=== PATIENT | female | born 1995 | race Caucasian/White ===

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

== ENCOUNTER 2017-02-03 14:10 | Observation (INO) | payer OTHER | END 2017-02-03 16:35 | disposition home or self-care (01) | LOC: MLD 14:10 | PROVIDERS: ADMIT Obstetrics & Gynecology; ATTEND Obstetrics & Gynecology | DX: O26.899 Other specified pregnancy related conditions, unspecified trimester (principal); N89.8 Other specified noninflammatory disorders of vagina; Z3A.00 Weeks of gestation of pregnancy not specified | CPT/HCPCS: 76805; G0378; Q0092; 81000 ==

== ENCOUNTER 2017-10-11 09:17 | Emergency (ER) | payer SELFPAY ==
[~2017-10-11] VITALS: Ht 172.7 cm; Wt 61.2 kg
[2017-10-11 09:23] VITALS: BP 112/79
--- NOTE | 2017-10-11 09:26 | NUR ---
PT AMBULATES TO BED 9
--- NOTE | 2017-10-11 09:35 | NUR ---
PT C/O SORE THROAT X 4 DAYS, DENIES FEVER, N/V. REPORTS HER TONSILD SEEM TO BE ENLARGED AND FEEL UNCONMFORTABLE. DENIES ANY SOB OR CP. NO SALIVATING NOTED. RESP EVEN AND UNLABORED, IN NAD. ON RA@99%, SPEAKING FULL CLR SENTENCES. VSS.
[2017-10-11 10:39] VITALS: BP 119/80
--- NOTE | 2017-10-11 10:39 | NUR ---
Patient discharged with v/s stable. Written and verbal after care instructions given and explained. Patient alert, oriented and verbalized understanding of instructions. Ambulatory with steady gait. All questions addressed prior to discharge. ID band removed. Patient advised to follow up with PMD. Rx of AZITHROMYCIN given. Patient educated on indication of medication including possible reaction and side effects. Opportunity to ask questions provided and answered.
== END 2017-10-11 10:33 | disposition home or self-care (01) ==
LOC: MED 09:17
DX: J02.8 Acute pharyngitis due to other specified organisms (principal)
CPT/HCPCS: 87081; 99284

== ENCOUNTER 2023-10-27 14:02 | Emergency (ER) | payer MEDICAID ==
[~2023-10-27] VITALS: Ht 172.7 cm; Wt 65.3 kg
[2023-10-27 14:08] VITALS: BP 109/61; PULSE 80; RESP 16; TEMP 97.7; O2SAT 100
[2023-10-27 15:48] LABS: APPEARANCE,URINE CLOUDY (CLEAR); BILIRUBIN,URINE NEGATIVE (NEGATIVE); BLOOD, URINE TRACE-I (NEGATIVE); COLOR,URINE YELLOW (YELLOW); LEUKOCYTE ESTERASE ,URINE 1+ (NEGATIVE); NITRITE, URINE NEGATIVE (NEGATIVE); PROTEIN,URINE TRACE (NEGATIVE); UGLUCOSE NEGATIVE (NEGATIVE); UROBILINOGEN,URINE 0.2 EU/dL (0.2 - 1)
[2023-10-27 15:57] LABS: RBC,URINE 0-5 /HPF (0-5)
[2023-10-27 15:58] LABS: BACTERIA,URINE >30 (MANY) /HPF (None Seen); MUCUS,URINE 1+ /LPF (None Seen); SQUAMOUS EPITHELIAL CELL,UR 4-10 (MOD) /LPF (0-3 (FEW))
[2023-10-27 16:07] VITALS: BP 115/65; PULSE 82; RESP 16; TEMP 97.8; O2SAT 100
== END 2023-10-27 16:55 | disposition left against medical advice (07) ==
LOC: MED 14:02
DX: A54.9 Gonococcal infection, unspecified (principal); A59.9 Trichomoniasis, unspecified; Z53.21 Procedure and treatment not carried out due to patient leaving prior to being seen by health care provider
CPT/HCPCS: 81001; 81025; 87086